=== PATIENT | male | born 1945 | race Asian ===

== ENCOUNTER 2023-03-17 21:40 | Inpatient (IN) | payer OTHER, MEDICAID ==
[~2023-03-17] VITALS: Ht 160 cm; Wt 66.0 kg
[2023-03-17 21:40] VITALS: BP_SYST 170; PULSE 72; RESP 16; TEMP 98.2; O2SAT 94
[2023-03-17] MEDS ORDERED: MORPHINE 4 MG INJ. 4 MG/ML VIAL IVP ONE (22:45)
[2023-03-17] MEDS ORDERED: ASPIRIN 325 MG TABLET PO ONE (22:45)
[2023-03-17] MEDS ORDERED: NITROGLYCERIN 1 INCH (GM) OINT. TP ONE (22:45)
[2023-03-17] MEDS ORDERED: ONDANSETRON 4 MG ODT TAB PO ONE (23:35)
[2023-03-18 00:13] LABS: ANION GAP 8 (5-15); CALCIUM 9.2 mg/dL (8.4-11.0); CARBON DIOXIDE 32 mmol/L (23-29); CHLORIDE 97 mmol/L (98-107); CREATININE 4.81 mg/dL (0.55-1.30); GLUCOSE 295 mg/dL (74-106); SODIUM SERUM 137 mmol/L (136-145); UREA NITROGEN, BLOOD 37 mg/dL (8-21)
[2023-03-18 00:15] LABS: BASOPHILS % (AUTO) 0.4 % (0.0-2.0); EOSINOPHILS # (AUTO) 0.1 K/uL (0.0-0.4); LYMPHOCYTES # (AUTO) 0.7 K/uL (1.0-5.5); LYMPHOCYTES % (AUTO) 7.6 % (20.5-51.5); MEAN CORPUSCULAR HEMOGLOBIN 31 pg (27-31); MEAN CORPUSCULAR HGB CONC 33 % (32-36); MEAN CORPUSCULAR VOLUME 95 fL (79.0-98.0); MONOCYTES # (AUTO) 0.8 K/uL (0.0-1.0); NEUTROPHILS # (AUTO) 7.8 K/uL (1.8-7.7); PLATELET COUNT (AUTO) 241 K/uL (130-430); RED CELL DISTRIBUTION WIDTH 14.7 % (9.0-15.0); WHITE BLOOD COUNT (AUTO) 9.5 K/uL (4.8-10.8)
[2023-03-18 00:33] LABS: HEMATOCRIT 20.9 % (36-54); HEMOGLOBIN 6.9 g/dL (14.0-18.0)
[2023-03-18] MEDS ORDERED: INSU100V9 SUBCUT (06:49)
[2023-03-18] MEDS ORDERED: LINA5TAB2 PO (06:49)
[2023-03-18] MEDS ORDERED: ATOR10TA68 PO (06:49)
[2023-03-18] MEDS ORDERED: CLON0.1T PO (06:49)
[2023-03-18] MEDS ORDERED: APIX2.5T PO (06:49)
[2023-03-18] MEDS ORDERED: ASPI-1393 PO (06:49)
[2023-03-18] MEDS ORDERED: AMIO200T68 PO (06:49)
[2023-03-18] MEDS ORDERED: PANT40TA45 PO (06:49)
[2023-03-18] MEDS ORDERED: CARV3.1246 PO (06:49)
[2023-03-18] MEDS ORDERED: MORPHINE 2 MG/ML INJ. SYRINGE IVP PRN ×2 (07:15)
[2023-03-18] MEDS ORDERED: ZOLPIDEM TARTRATE 5 MG TABLET PO PRN (07:15)
[2023-03-18] MEDS ORDERED: MAGNESIUM SULFATE 50 ML IV PRN (07:15)
[2023-03-18] MEDS ORDERED: POTASSIUM CHLORIDE 20 MEQ TABLET.ER PO PRN (07:15)
[2023-03-18] MEDS ORDERED: ONDANSETRON HCL 4 MG/2 ML VIAL IVP PRN (07:15)
[2023-03-18] MEDS ORDERED: MUPIROCIN 2% TOPICAL OINTMENT 22 GM NS PRN (07:15)
[2023-03-18] MEDS ORDERED: NALOXONE HCL 0.4 MG/ML AMP (NARCAN) IVP PRN ×2 (07:15)
[2023-03-18] MEDS ORDERED: LORazepam 2 MG/ML VIAL IVP PRN (07:15)
[2023-03-18] MEDS ORDERED: DEXTROSE 50% JECT 50 ML DISP.SYRIN IVP PRN (07:15)
[2023-03-18] MEDS ORDERED: ACETAMINOPHEN 500 MG TABLET PO PRN ×2 (08:15)
[2023-03-18 08:42] LABS: HEMOGLOBIN A1C 8.35 % (<5.7)
[2023-03-18 08:55] LABS: THYROID STIMULATING HORMONE 1.24 uIu/mL (0.34-4.82)
[2023-03-18 08:55] LABS: TOTAL IRON BIND. CAPACITY 220 ug/dL (250-450)
[2023-03-18] MEDS ORDERED: APIXABAN 2.5 MG TABLET PO SCH (09:00)
[2023-03-18] MEDS ORDERED: HEPARIN SODIUM,PORCINE 5,000 UNITS/ML VIAL IVP SCH (09:00)
[2023-03-18] MEDS: ATORVASTATIN 10 MG TABLET PO SCH (09:26)
[2023-03-18] MEDS: AMIODARONE HCL 200 MG TABLET PO SCH (09:26)
[2023-03-18] MEDS: ASPIRIN 81 MG TABLET(ECOTRIN) PO SCH (09:27)
[2023-03-18] MEDS: CARVEDILOL 3.125 MG TABLET (COREG) PO SCH (09:28)
[2023-03-18 16:31] VITALS: BP_SYST 174; PULSE 74; RESP 16; TEMP 97.9; O2SAT 94
[2023-03-18 18:01] VITALS: O2SAT 94
[2023-03-18 20:00] VITALS: BP_SYST 139; PULSE 77; RESP 20; TEMP 98.4; O2SAT 95
[2023-03-19] MEDS: INSULIN LISPRO SLIDING SCALE 100 UNITS/ML, 3 ML VIAL (humaLOG) SUBCUT PRN ×5 (00:21→21:03)
[2023-03-19] MEDS: CARVEDILOL 3.125 MG TABLET (COREG) PO SCH ×3 (00:21→20:52)
[2023-03-19] MEDS: AMIODARONE HCL 200 MG TABLET PO SCH ×3 (00:22→20:51)
[2023-03-19 00:50] VITALS: BP_SYST 114; PULSE 75; RESP 19; TEMP 98.7; O2SAT 100
[2023-03-19 07:07] LABS: FERRITIN 2502 ng/mL (30-400)
[2023-03-19 08:00] VITALS: BP_SYST 153; PULSE 98; RESP 20; TEMP 98.1; O2SAT 98
[2023-03-19] MEDS: ASPIRIN 81 MG TABLET(ECOTRIN) PO SCH (08:14)
[2023-03-19] MEDS: ATORVASTATIN 10 MG TABLET PO SCH (08:14)
[2023-03-19] MEDS: DOCUSATE SODIUM 100 MG CAPSULE PO PRN (08:23)
[2023-03-19 08:51] LABS: BASOPHILS # (AUTO) 0.1 K/uL (0.0-0.2); BASOPHILS % (AUTO) 0.7 % (0.0-2.0); EOSINOPHILS # (AUTO) 0.1 K/uL (0.0-0.4); HEMATOCRIT 27.1 % (36-54); LYMPHOCYTES # (AUTO) 0.7 K/uL (1.0-5.5); LYMPHOCYTES % (AUTO) 6.8 % (20.5-51.5); MEAN CORPUSCULAR HEMOGLOBIN 31 pg (27-31); MEAN CORPUSCULAR HGB CONC 33 % (32-36); MEAN CORPUSCULAR VOLUME 94 fL (79.0-98.0); MONOCYTES # (AUTO) 0.8 K/uL (0.0-1.0); MONOCYTES % (AUTO) 8.3 % (1.7-9.3); NEUTROPHILS % (AUTO) 83.2 % (40.0-70.0); PLATELET COUNT (AUTO) 232 K/uL (130-430); RED BLOOD CELL COUNT(AUTO) 2.87 MIL/uL (4.2-6.2); RED CELL DISTRIBUTION WIDTH 14.6 % (9.0-15.0); WHITE BLOOD COUNT (AUTO) 9.6 K/uL (4.8-10.8)
[2023-03-19 09:23] LABS: PROTHROMBIN TIME 10.4 SECS (9.5-12.5)
[2023-03-19 10:24] LABS: ALANINE AMINOTRANSFERASE 211 U/L (12-78); ALBUMIN 2.6 g/dL (3.4-4.8); ANION GAP 8 (5-15); ASPARTATE AMINOTRANSFERASE 75 U/L (10-37); CALCIUM 8.1 mg/dL (8.4-11.0); CARBON DIOXIDE 29 mmol/L (23-29); CHLORIDE 95 mmol/L (98-107); GLUCOSE 214 mg/dL (74-106); POTASSIUM 3.7 mmol/L (3.5-5.1); SODIUM SERUM 132 mmol/L (136-145); TOTAL BILIRUBIN 0.7 mg/dL (0.0-1.0); TOTAL PROTEIN, SERUM 6.6 g/dL (6.4-8.3); UREA NITROGEN, BLOOD 41 mg/dL (8-21)
[2023-03-19 10:54] VITALS: BP_SYST 111; PULSE 62; RESP 16; TEMP 97; O2SAT 100
[2023-03-19] MEDS: FERROUS SULFATE 325 MG TABLET.DR PO SCH ×2 (11:24→20:52)
[2023-03-19 15:06] VITALS: BP_SYST 125; PULSE 60; RESP 16; TEMP 98.1; O2SAT 100
[2023-03-19] MEDS ORDERED: BISACODYL 10 MG/SUPPOSITORY RC PRN (17:45)
[2023-03-19] MEDS ORDERED: MILK OF MAGNESIA 30 ML UDC PO PRN (17:45)
[2023-03-19 19:00] VITALS: BP_SYST 122; PULSE 64; RESP 16; TEMP 98.2; O2SAT 98
[2023-03-19 20:00] VITALS: BP_SYST 122; PULSE 64; RESP 16; TEMP 98.2; O2SAT 98
[2023-03-20 00:23] VITALS: BP_SYST 141; PULSE 60; RESP 18; TEMP 98.5; O2SAT 100
[2023-03-20 06:19] LABS: BASOPHILS % (AUTO) 0.3 % (0.0-2.0); EOSINOPHILS # (AUTO) 0.3 K/uL (0.0-0.4); EOSINOPHILS % (AUTO) 3.7 % (0.0-4.0); HEMATOCRIT 24.5 % (36-54); HEMOGLOBIN 8.1 g/dL (14.0-18.0); LYMPHOCYTES # (AUTO) 0.5 K/uL (1.0-5.5); MEAN CORPUSCULAR HEMOGLOBIN 32 pg (27-31); MEAN CORPUSCULAR HGB CONC 33 % (32-36); MEAN CORPUSCULAR VOLUME 95 fL (79.0-98.0); MONOCYTES # (AUTO) 0.9 K/uL (0.0-1.0); MONOCYTES % (AUTO) 11.6 % (1.7-9.3); NEUTROPHILS # (AUTO) 5.8 K/uL (1.8-7.7); NEUTROPHILS % (AUTO) 77.4 % (40.0-70.0); PLATELET COUNT (AUTO) 238 K/uL (130-430); RED BLOOD CELL COUNT(AUTO) 2.58 MIL/uL (4.2-6.2); RED CELL DISTRIBUTION WIDTH 14.8 % (9.0-15.0); WHITE BLOOD COUNT (AUTO) 7.5 K/uL (4.8-10.8)
[2023-03-20 06:36] LABS: ANION GAP 11 (5-15); CALCIUM 8.9 mg/dL (8.4-11.0); CARBON DIOXIDE 29 mmol/L (23-29); CHLORIDE 95 mmol/L (98-107); CREATININE 7.46 mg/dL (0.55-1.30); GLUCOSE 156 mg/dL (74-106); POTASSIUM 4.4 mmol/L (3.5-5.1); SODIUM SERUM 135 mmol/L (136-145); UREA NITROGEN, BLOOD 66 mg/dL (8-21)
[2023-03-20] MEDS: INSULIN LISPRO SLIDING SCALE 100 UNITS/ML, 3 ML VIAL (humaLOG) SUBCUT PRN ×4 (06:46→22:46)
[2023-03-20 06:55] LABS: ALANINE AMINOTRANSFERASE 178 U/L (12-78); ALBUMIN 2.3 g/dL (3.4-4.8); ASPARTATE AMINOTRANSFERASE 60 U/L (10-37); TOTAL BILIRUBIN 0.5 mg/dL (0.0-1.0); TOTAL PROTEIN, SERUM 5.7 g/dL (6.4-8.3)
[2023-03-20 08:01] VITALS: BP_SYST 147; PULSE 61; RESP 18; TEMP 98.4; O2SAT 100
[2023-03-20 08:23] VITALS: O2SAT 100
[2023-03-20] MEDS: FERROUS SULFATE 325 MG TABLET.DR PO SCH ×2 (09:22→22:37)
[2023-03-20] MEDS: DOCUSATE SODIUM 100 MG CAPSULE PO PRN (09:23)
[2023-03-20] MEDS: AMIODARONE HCL 200 MG TABLET PO SCH ×2 (09:23→22:39)
[2023-03-20] MEDS: CARVEDILOL 3.125 MG TABLET (COREG) PO SCH ×2 (09:24→22:38)
[2023-03-20] MEDS: ASPIRIN 81 MG TABLET(ECOTRIN) PO SCH (09:24)
[2023-03-20] MEDS: ATORVASTATIN 10 MG TABLET PO SCH (09:24)
[2023-03-20 11:28] VITALS: BP_SYST 167; PULSE 60; RESP 16; TEMP 98.7; O2SAT 100
[2023-03-20] MEDS: POLYETHYLENE GLYCOL 3350, 17 GM/ POWD.PACK PO SCH (11:31)
[2023-03-20 16:00] VITALS: BP_SYST 169; PULSE 63; RESP 18; TEMP 98.2; O2SAT 100
[2023-03-20] MEDS ORDERED: EPOETIN ALFA 4,000 UNITS/ML VIAL SUBCUT SCH (17:00)
[2023-03-20] MEDS ORDERED: BISACODYL 5 MG TABLET.DR (DULCOLAX) PO ONE (17:00)
[2023-03-20] MEDS ORDERED: GOLYTELY / COLYTE SOLUTION 4 LITERS PO ONE (18:00)
[2023-03-20 20:00] VITALS: BP_SYST 167; PULSE 60; RESP 18; TEMP 98.3
[2023-03-21 00:35] VITALS: BP_SYST 165; PULSE 66; RESP 16; TEMP 98.4; O2SAT 100
[2023-03-21 06:07] LABS: BASOPHILS % (AUTO) 0.5 % (0.0-2.0); EOSINOPHILS # (AUTO) 0.3 K/uL (0.0-0.4); EOSINOPHILS % (AUTO) 4.5 % (0.0-4.0); HEMATOCRIT 24.4 % (36-54); HEMOGLOBIN 8.1 g/dL (14.0-18.0); LYMPHOCYTES # (AUTO) 0.7 K/uL (1.0-5.5); MEAN CORPUSCULAR HEMOGLOBIN 32 pg (27-31); MEAN CORPUSCULAR HGB CONC 33 % (32-36); MEAN CORPUSCULAR VOLUME 95 fL (79.0-98.0); MONOCYTES # (AUTO) 0.8 K/uL (0.0-1.0); MONOCYTES % (AUTO) 13.6 % (1.7-9.3); NEUTROPHILS # (AUTO) 4.2 K/uL (1.8-7.7); NEUTROPHILS % (AUTO) 69.4 % (40.0-70.0); PLATELET COUNT (AUTO) 258 K/uL (130-430); RED BLOOD CELL COUNT(AUTO) 2.58 MIL/uL (4.2-6.2); RED CELL DISTRIBUTION WIDTH 14.7 % (9.0-15.0)
[2023-03-21] MEDS ORDERED: MIDAZOLAM HCL 5 MG/5 ML VIAL ONE ×2 (06:23→08:57)
[2023-03-21] MEDS ORDERED: fentaNYL CITRATE/PF 100 MCG/2 ML AMP ONE ×2 (06:23→08:57)
[2023-03-21] MEDS ORDERED: SIMETHICONE 40 MG/0.6 ML ML ONE (06:23)
[2023-03-21 06:45] LABS: POTASSIUM 4.1 mmol/L (3.5-5.1); SODIUM SERUM 141 mmol/L (136-145)
[2023-03-21 06:46] LABS: ANION GAP 16 (5-15); CARBON DIOXIDE 29 mmol/L (23-29); CHLORIDE 96 mmol/L (98-107); GLUCOSE 146 mg/dL (74-106); UREA NITROGEN, BLOOD 78 mg/dL (8-21)
[2023-03-21 06:49] LABS: CREATININE 8.38 mg/dL (0.55-1.30)
[2023-03-21 07:43] VITALS: BP_SYST 175; PULSE 100; RESP 17; TEMP 98.2; O2SAT 100
[2023-03-21] MEDS: POLYETHYLENE GLYCOL 3350, 17 GM/ POWD.PACK PO SCH (09:00)
[2023-03-21] MEDS: ASPIRIN 81 MG TABLET(ECOTRIN) PO SCH (10:36)
[2023-03-21] MEDS: ATORVASTATIN 10 MG TABLET PO SCH (10:36)
[2023-03-21] MEDS: AMIODARONE HCL 200 MG TABLET PO SCH (10:37)
[2023-03-21] MEDS: FERROUS SULFATE 325 MG TABLET.DR PO SCH (10:37)
[2023-03-21] MEDS: CARVEDILOL 3.125 MG TABLET (COREG) PO SCH (10:38)
[2023-03-21 12:33] VITALS: BP_SYST 176; PULSE 87; RESP 17; TEMP 98.3; O2SAT 100
[2023-03-21 19:47] VITALS: O2SAT 100
== END 2023-03-21 17:35 | disposition left against medical advice (07) | DRG 377 ==
LOC: SED 21:40 → STU 03-18 02:13
PROVIDERS: ADMIT General Practice; ATTEND General Practice
PROC: 30233N1 Transfusion of Nonautologous Red Blood Cells into Peripheral Vein, Percutaneous Approach (ICD-10-PCS; 2023-03-18)
PROC: 5A1D70Z Performance of Urinary Filtration, Intermittent, Less than 6 Hours Per Day (ICD-10-PCS; 2023-03-18)
PROC: 5A1D70Z Performance of Urinary Filtration, Intermittent, Less than 6 Hours Per Day (ICD-10-PCS; 2023-03-20)
PROC: 5A1D70Z Performance of Urinary Filtration, Intermittent, Less than 6 Hours Per Day (ICD-10-PCS; 2023-03-21)
PROC: 0W3P8ZZ Control Bleeding in Gastrointestinal Tract, Via Natural or Artificial Opening Endoscopic (ICD-10-PCS; principal; 2023-03-21 10:00)
DX: K55.21 Angiodysplasia of colon with hemorrhage (principal); I21.A1 Myocardial infarction type 2; I50.43 Acute on chronic combined systolic (congestive) and diastolic (congestive) heart failure; N17.0 Acute kidney failure with tubular necrosis; N18.6 End stage renal disease; I13.2 Hypertensive heart and chronic kidney disease with heart failure and with stage 5 chronic kidney disease, or end stage renal disease; D50.9 Iron deficiency anemia, unspecified; I25.10 Atherosclerotic heart disease of native coronary artery without angina pectoris; E11.65 Type 2 diabetes mellitus with hyperglycemia; E78.5 Hyperlipidemia, unspecified; E11.22 Type 2 diabetes mellitus with diabetic chronic kidney disease; Z79.84 Long term (current) use of oral hypoglycemic drugs; Z79.4 Long term (current) use of insulin; Z79.01 Long term (current) use of anticoagulants; Z79.82 Long term (current) use of aspirin; Z79.899 Other long term (current) drug therapy; Z95.0 Presence of cardiac pacemaker; Z95.1 Presence of aortocoronary bypass graft; Z99.2 Dependence on renal dialysis; I25.2 Old myocardial infarction
CPT/HCPCS: 36415; 45382; 70450-TC; 71045; 76376; 76700-TC; 78226; 80048; 80053; 82248; 82272; 82607; 82728; 82962; 83037; 83540; 83550; 83735; 83880; 84443; 84484; 85025; 85610-TC; 86886; 86900; 86901; 86920; 87081; 90935; 93005; 93306; 97116-GP; 97530-GP; 99291; A9537; G0378; J0885; J2250; J2270; J3010; P9021; Q0162